=== PATIENT | female | born 1985 | race Caucasian/White ===

== ENCOUNTER 2016-09-19 09:01 | Emergency (ER) | payer MEDICAID ==
[~2016-09-19] VITALS: Ht 157.5 cm; Wt 77.3 kg
[2016-09-19 09:03] VITALS: BP 179/110; TEMP 98.2
[2016-09-19] MEDS ORDERED: LEXAPRO 10MG10 MG PO (09:07)
[2016-09-19] MEDS ORDERED: LOPRESSOR 550 MG/TAB PO (09:07)
[2016-09-19] MEDS ORDERED: POLYMYXIN B/TRIMETH OU (10:27)
[2016-09-19 10:41] VITALS: PULSE 95
== END 2016-09-19 10:42 | disposition home or self-care (01) ==
LOC: COL.ER 09:01
DX: H10.89 Other conjunctivitis (principal); B99.9 Unspecified infectious disease